=== PATIENT | female | born 1945 | race Two or more races ===

== ENCOUNTER 2025-02-02 10:53 | Outpatient (CLI) | payer OTHER | END 2025-02-02 10:59 | disposition home or self-care (01) | LOC: NUCLEAR 10:53 | DX: I83.90 Asymptomatic varicose veins of unspecified lower extremity (principal); M79.671 Pain in right foot; M79.672 Pain in left foot; I77.1 Stricture of artery ==

== ENCOUNTER 2025-02-05 09:07 | Outpatient (CLI) | payer OTHER | END 2025-02-05 09:08 | disposition home or self-care (01) | LOC: NUCLEAR 09:07 | DX: M79.671 Pain in right foot (principal); M79.672 Pain in left foot; I87.2 Venous insufficiency (chronic) (peripheral) ==